=== PATIENT | female | born 1975 | race Caucasian/White ===

== ENCOUNTER 2019-02-03 21:20 | Emergency (ER) | payer BC, OTHER ==
[~2019-02-03] VITALS: Ht 167.6 cm; Wt 59.0 kg
[~2019-02-03 21:20] MED LIST: NO REPORTABLE MEDS
[2019-02-03] MEDS ORDERED: METOCLOPRAMIDE HCL 10 MG/2 ML VIAL ONE (21:53)
[2019-02-03] MEDS ORDERED: diphenhydrAMINE HCL 50 MG/ML VIAL ONE (21:53)
[2019-02-03] MEDS ORDERED: METOCLOPRAMIDE HCL 10 MG/2 ML VIAL IV ONE (22:00)
[2019-02-03] MEDS ORDERED: diphenhydrAMINE HCL 50 MG/ML VIAL IV ONE (22:00)
[2019-02-03] MEDS ORDERED: IV NS 0.9% 250 ML BAG IV ONE (22:00)
[2019-02-03 23:04] VITALS: BP 111/82
== END 2019-02-03 23:05 | disposition home or self-care (01) ==
LOC: ER 21:25
DX: G43.909 Migraine, unspecified, not intractable, without status migrainosus (principal); Z98.890 Other specified postprocedural states
CPT/HCPCS: 96374; 96375; 99283; J1200; J2765; J7050